=== PATIENT | female | born 1995 | race African-American/Black ===

== ENCOUNTER 2020-12-06 18:13 | Emergency (ER) | payer OTHER ==
[2020-12-06 18:19] VITALS: TEMP 98.6; BMI 21.9
[2020-12-06 19:30] LABS: PH,URINE 6.5 (5.0-8.0); URINE APPEARANCE CLOUDY; URINE BILIRUBIN NEGATIVE (NEGATIVE); URINE COLOR DK YELLOW; URINE GLUCOSE (UA) NEGATIVE (NEGATIVE); URINE KETONE TRACE (NEGATIVE); URINE LEUK ESTERASE NEGATIVE (NEGATIVE); URINE NITRITE NEGATIVE (NEGATIVE); URINE PROTEIN TRACE (NEGATIVE)
[2020-12-06 19:31] LABS: BASO % 1.4 % (0-2.0); EOS % 1.6 % (0-4.5); HEMATOCRIT 34.6 % (32.4-45.2); HEMOGLOBIN 11.6 GM/dL (10.7-15.3); LYMPH % 50.5 % (8-40); MCH 30.9 pg (25.7-33.7); MCHC 33.5 g/dl (32.0-36.0); MEAN CELL VOLUME 92.1 fl (80-96); MONO % 7.7 % (3.8-10.2); NEUT % 38.8 % (42.8-82.8); PLATELET COUNT 236 10^3/uL (134-434); RBC 3.76 M/mm3 (3.60-5.2); RDW 14.4 % (11.6-15.6)
[2020-12-06 19:41] LABS: HCG,QUALITATIVE URINE Negative
[2020-12-06 19:57] LABS: CHLORIDE 108 mmol/L (98-107); SODIUM 140 mmol/L (136-145)
[2020-12-06 19:59] LABS: ALBUMIN 3.6 g/dl (3.4-5.0); ANION GAP 7 MMOL/L (8-16); BLOOD UREA NITROGEN 13.4 mg/dL (7-18); CALCIUM 8.9 mg/dL (8.5-10.1); CO2 25 mmol/L (21-32)
[2020-12-06 20:00] LABS: GLUCOSE,RANDOM 81 mg/dL (74-106)
[2020-12-06 20:03] LABS: CREATININE 0.8 mg/dL (0.55-1.3); SGOT/AST 21 U/L (15-37); SGPT/ALT 18 U/L (13-61)
[2020-12-06 20:04] LABS: BILIRUBIN,TOTAL 0.3 mg/dL (0.2-1); TOT PROT 7.3 g/dl (6.4-8.2)
[2020-12-06 20:05] LABS: ALK PHOS 51 U/L (45-117)
[2020-12-06] MEDS ORDERED: NAPROXEN 500 MG TABLET PO ONE (20:21)
[2020-12-06] MEDS ORDERED: NAPROXEN 500 MG TABLET ONE (20:26)
[2020-12-06 21:10] VITALS: BP 98/61; PULSE 67
== END 2020-12-06 21:25 | disposition home or self-care (01) ==
LOC: JER 18:13
DX: R07.82 Intercostal pain (principal)
CPT/HCPCS: 36415; 71046-TC-FY; 80053; 81003; 82550; 82553; 84484; 84703; 85025; 87086; 93005; 93010; 99285-25